=== PATIENT | female | born 1985 | race Caucasian/White ===

== ENCOUNTER 2017-05-14 17:22 | Emergency (ER) | payer MEDICAID ==
[2017-05-14 17:59] VITALS: RESP 18; TEMP 98.4; O2SAT 99
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
[2017-05-14 19:27] VITALS: BP 104/71; PULSE 80
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
== END 2017-05-14 19:27 | disposition home or self-care (01) ==
LOC: ED 17:22
DX: S93.601A Unspecified sprain of right foot, initial encounter (principal); V43.52XA Car driver injured in collision with other type car in traffic accident, initial encounter